=== PATIENT | female | born 1945 | race Hispanic/Latino ===

== ENCOUNTER 2017-07-22 19:23 | Emergency (ER) | payer MEDICARE ==
[~2017-07-22] VITALS: Ht 162.6 cm; Wt 65.8 kg
[~2017-07-22 19:23] MED LIST: COMPRO25 MG PO; HYDROCODON-ACE1 EA11 PO; HYDROXYZINE HCL25 MG PO; RANITIDINE HCL150 MG PO; ULTRAM 50MG50 MG PO; Z.0.LEVOTHROID75 MCG; Z.0.LOVASTATIN20 MG; Z.1.DIOVAN HCT 3201 PO; ZOFRAN4 MG PO
[2017-07-22] MEDS ORDERED: ACETAMINOPHEN 325 MG TAB PO ONE (21:45)
[2017-07-22 23:54] VITALS: BP 149/88
== END 2017-07-22 22:08 | disposition home or self-care (01) ==
LOC: FSED 19:23
DX: S80.01XA Contusion of right knee, initial encounter (principal); W01.0XXA Fall on same level from slipping, tripping and stumbling without subsequent striking against object, initial encounter; Y93.01 Activity, walking, marching and hiking; Y92.015 Private garage of single-family (private) house as the place of occurrence of the external cause; S83.91XD Sprain of unspecified site of right knee, subsequent encounter; I10 Essential (primary) hypertension; E78.5 Hyperlipidemia, unspecified; E03.9 Hypothyroidism, unspecified; N95.9 Unspecified menopausal and perimenopausal disorder
CPT/HCPCS: 99283

== ENCOUNTER → 2017-09-16 | Day surgery (SDC) | payer MEDICARE ==
[2017-09-14 12:11] LABS: BASOPHILS % 0.8 % (0.0-1.0); EOSINOPHILS # (AUTO) 0.2 (0.0-0.4); EOSINOPHILS % 4.1 % (0.0-6.0); HEMOGLOBIN 12.2 g/dL (12.0-16.0); LYMPHOCYTES # (AUTO) 1.8 (1.0-3.2); MEAN CORPUSCULAR HEMOGLOBIN 30.5 pg (28-32); MEAN CORPUSCULAR HGB CONC 33.9 g/dL (31-35); MONOCYTES # (AUTO) 0.5 (0.2-0.8); MONOCYTES % 9.7 % (4.4-11.3); NEUTROPHILS # (AUTO) 2.3 (2.1-6.9); NEUTROPHILS % 48.2 % (38.7-80.0); PLATELET COUNT 160 x10e3/uL (140-360); RED CELL DISTRIBUTION WIDTH 12.8 % (11.7-14.4)
[2017-09-14 12:27] LABS: ANION GAP 10.6 mmol/L (8-16); BLOOD UREA NITROGEN 18 mg/dL (7-26); BUN/CREATININE RATIO 22 (6-25); CALCIUM 9.3 mg/dL (8.4-10.2); CARBON DIOXIDE 30 mmol/L (22-29); CHLORIDE 101 mmol/L (98-107); CREATININE, SERUM 0.81 mg/dL (0.57-1.11); EST GLOMERULAR FILTRATION RATE > 60 ML/MIN (60-); GLUCOSE 146 mg/dL (74-118); POTASSIUM 4.6 mmol/L (3.5-5.1); SODIUM 137 mmol/L (136-145)
--- NOTE | 2017-09-14 12:28 | Diagnostic Imaging Report ---
PROCEDURE: Frontal and lateral views of the chest. COMPARISON: None. INDICATIONS: PRE-OP KNEE FINDINGS: Lines/tubes: None. Lungs: The lungs are well inflated and clear. There is no evidence of pneumonia or pulmonary edema. Pleura: There is no pleural effusion or pneumothorax. Heart and mediastinum: The heart and the mediastinum are normal. Bones: No acute bony abnormality. Rotator cuff calcific tendinosis. Upper abdomen: No free air under the diaphragm. Cholecystectomy clips. IMPRESSION: No acute cardiopulmonary disease. Dictated by: William Leon M.D. on 09/14/2017 at 12:29 Electronically approved by: William Leon M.D. on 09/14/2017 at 12:29
[~2017-09-16] MED LIST changes: +ACETAMINOPHEN 1000 MG/100 ML IV ONE; +AMLODIPINE BES2.5 MG PO; +BUPIVACAINE 0.5%/EPI 30 ML SDV INJ ONE; +CEFAZOLIN SOD 2 GM/D5W 50ML 50 ML IV ONE; +DEXAMETHASONE SOD PHOS INJ 4 MG/ML VIAL ONE; +DIOVAN HCT 3201 EACH PO; +EPHEDRINE SULFATE INJ 50 MG/10 ML SYR ONE; +FENTANYL CITRATE/PF 100MCG/2 ML INJ ONE; +LEVOCETIRIZINE PO; +LIDOCAINE HCL 2% LOCAL INJ 5 ML SDV VIAL INJ ONE; +MELOXICAM15 MG PO; +MIDAZOLAM HCL 2 MG/2 ML VIAL ONE; +ONDANSETRON HCL INJ 2 MG/ML VIAL ONE; +PHENYLEPHRINE HCL 1% 10 MG/ML VIAL ONE; +PROPOFOL IV EMULSION 10 MG/ML 20 ML VIAL ONE; +SEVOFLURANE INHAL SOLN 250 ML PEN BTL ONE; -Z.0.LEVOTHROID75 MCG; +Z.0.LEVOTHROID75 MCG PO; -Z.0.LOVASTATIN20 MG; +Z.0.LOVASTATIN20 MG PO
--- OUTSIDE RECORDS SUMMARY | 2017-09-16 09:57 | XMS REPORT ---
Author Author [facility] Address Unknown Phone Unavailable Care Team Providers Care Disabilities Caregiver Name Role Phone MATTHEW DICKSON Unavailable Unavailable Problems This patient has no known problems. Allergies, Adverse Reactions, Alerts This patient has no known allergies or adverse reactions. Medications This patient has no known medications. Results Test Description Test Time Test Comments Text Results Atomic Results Result Comments CHEST [address] [address] Patient Name: PAMELA MARI MR #: [id number] : 1945 Age/Sex: 71/F Req #: [id number] Adm Physician: Ordered by: MATTHEW DICKSON MD Report #: [id number] Location: OR Room/Bed: Procedure: [id number] DX/CHEST 2 VIEWS Exam Date: 09/14/17 Exam Time: 1220 REPORT STATUS: Signed PROCEDURE: Frontal and lateral views of the chest. COMPARISON: None. INDICATIONS: PRE-OP KNEE FINDINGS: Lines/tubes: None. Lungs: The lungs are well inflated and clear. There is no evidence of pneumonia or pulmonary edema. Pleura: There is no pleural effusion or pneumothorax. Heart and mediastinum: The heart and the mediastinum are normal. Bones: No acute bony abnormality. Rotator cuff calcific tendinosis. Upper abdomen: No free air under the diaphragm. Cholecystectomy clips. IMPRESSION: No acute cardiopulmonary disease. Dictated by: William Leon M.D. on 09/14/2017 at 12:29 Electronically approved by: William Leon M.D. on 09/14/2017 at 12:29 Dictated By: WILLIAM LEON MD 1229 Transcribed By: SARAH on 09/14/17 1229 COPY TO: MATTHEW DICKSON MD
--- OUTSIDE RECORDS SUMMARY | 2017-09-16 09:57 | XMS REPORT | Continuity of Care Document ---
Author Author [facility] Organization [facility] Address [address] [place] [address] Phone Unavailable Care Team Providers Care Special Police Officer Name Role Phone CHRISTOPHER TIAN PCP Insurance Providers Guarantor Pamela Pan Y Address [address] [place] [address] Email [facility] [employer] Policy Number [id number] Subscriber's Name Pamela Pan Y Relationship 18 Self / Same As Patient Group Number [id number] Group Name RETIRED Effective Date 11 Advance Directives Directive Response Recorded Date/Time Does the patient have an advance directive? No 12/23/12 12:15pm If yes, is advance directive on file with [facility]? No 12/23/12 12:15pm If not on file with [facility] will patient provide a copy? No 12/23/12 12:15pm Do you have a Directive to Physician? No 07/22/17 7:36pm Do you have a Medical Power of Railroad Whe[employer] Ax[employer] Inspector? No 07/22/17 7:36pm Do you have an out of hospital Do Not Resuscitate Order? No 07/22/17 7:36pm Do you have any special needs we should be aware of? No 07/22/17 7:36pm Do you have a support person here with you today? No 07/22/17 7:36pm Did patient receive Notice of Privacy Practices? Yes 07/22/17 7:36pm Did patient receive patient rights and responsibilities? Yes 07/22/17 7:36pm Problems No problem information available. Medications Current Home Medications Medication Dose Units Route Directions Days Qty Instructions Start Date Levothyroxine Sodium (Levothroid) 75 Mcg Tablet Lovastatin 20 Mg Tablet Daily Ondansetron Hcl (Zofran*) 4 Mg Tablet 4 Mg Oral Every 8 Hours as needed for Nausea And Vomiting Ranitidine Hcl 150 Mg Tablet 150 Mg Oral Twice A Day Tramadol Hcl (Ultram 50MG*) 50 Mg Tab 50 Mg Oral As Needed Valsartan/Hydrochlorothiazide (Diovan Hct 320-12.5 Mg Tab) 1 Each Tablet Oral Daily Past Home Medications Medication Directions Ordered Status Hydrocodone Bit/Acetaminophen (Hydrocodon-Acetaminophen 5-325) 1 Each Tablet, Oral Three Times A Day as needed Discontinued Hydroxyzine Hcl 25 Mg Tablet, 25 Mg Oral As Needed Discontinued Prochlorperazine (Compro) 25 Mg Supp, 10 Mg Oral Three Times A Day as needed Discontinued Social History Social History Problem Response Recorded Date/Time Onset Date Status Hx Psychiatric Problems No 12/23/2012 12:15pm Not Applicable Not Applicable Hx Eating Disorder No 12/23/2012 12:15pm Not Applicable Not Applicable Hx Substance Use Disorder No 12/23/2012 12:15pm Not Applicable Not Applicable Hx Depression No 12/23/2012 12:15pm Not Applicable Not Applicable Hx Alcohol Use No 12/23/2012 12:15pm Not Applicable Not Applicable Hx Substance Use Treatment No 12/23/2012 12:15pm Not Applicable Not Applicable Hx Physical Abuse No 12/23/2012 12:15pm Not Applicable Not Applicable Smoking Status Start Date Stop Date Former smoker Hospital Discharge Instructions No hospital discharge instruction information available. Plan of Care Discharge Date 07/22/17 10:08pm Disposition HOME, SELF-CARE Condition at Discharge Stable Instructions/Education Provided Strains Contusion Sprains - Knee Prescriptions See Medication Section Referrals CHRISTOPHER TIAN Address: [address] [place] [id number] Additional Instructions/Education Return to the closest emergency room if symptoms worsen. You may take a maximum of 500mg Tylenol every 4 hours as needed for pain and fever. It is okay to alternate your meloxicam and Tylenol. Rest your knee. Use cane and walker as needed. Ice your knee for 20 minutes every 2 hours for the next 48 hrs. Wrap your knee with an FRANCISCA wrap. Elevate your knee above your heart. Follow up with your primary care physician tomorrow. Functional Status No functional status information available. Allergies, Adverse Reactions, Alerts Allergen Type Severity Reaction Status Last Updated Aspirin Allergy Unknown Active 07/22/17 Immunizations No immunization information available. Vital Signs Acute Vital Signs Vital Response Date/Time Temperature (Fahrenheit) 98.2 degrees F (97.6 - 99.5) 07/22/2017 11:54pm Pulse Pulse Rate (adult) 72 bpm (60 - 90) 07/22/2017 11:54pm Respiratory Rate 16 bpm (12 - 24) 07/22/2017 11:54pm Blood Pressure 149/88 mm Hg 07/22/2017 11:54pm Height 5 ft 4 in 07/22/2017 7:50pm Weight 145 lb 07/22/2017 7:50pm Body Mass Index 24.9 kg/m^2 07/22/2017 7:50pm Results No relevant diagnostic test, laboratory data and/or discharge summary information available. Procedures No procedure information available. Encounters Encounter Location Arrival/Admit Date Discharge/Depart Date Attending Provider Departed Emergency Room [facility] 07/22/17 7:23pm 10:08pm JOSEY WALLACE MD
--- NOTE | 2017-09-16 23:19 | Operative Report ---
DATE OF PROCEDURE: September 16, 2017 PREOPERATIVE DIAGNOSES 1. Right knee medial meniscus tear. 2. Right knee degenerative joint disease of the knee. POSTOPERATIVE DIAGNOSES 1. Right knee medial meniscus tear. 2. Right knee degenerative joint disease of the knee. OPERATIONS/PROCEDURES PERFORMED: Patient underwent 1. Right knee examination under anesthesia. 2. Right knee arthroscopy. 3. Right knee partial medial meniscectomy. 4. Right knee chondroplasty of the patella, trochlea, and the medial femoral condyle, medial plateau and lateral femoral condyle, lateral tibial plateau. ASSIST: None. ANESTHESIA: General endotracheal intubation anesthesia. IV FLUIDS: Per the anesthesia record. BRIEF DESCRIPTION OF OPERATIVE PROCEDURE: Ms. Pan was taken to the operating room, placed in supine position on operating table. Following induction of general anesthesia, as well as endotracheal intubation, the patient's right lower extremity examined under anesthesia. She was found to have a mild effusion within the joint, but, otherwise, ligamentously stable knee. The patient's lower extremity was prepped and draped in standard surgical fashion. A 2-port technique used to provide this patient arthroscopic evaluation of the knee joint. Examination of the suprapatellar pouch, medial lateral gutters found no evidence of loose bodies. There was, however, evidence of chondromalacia of the patella, trochlear surface. The scope was advanced in medial compartment. Patient's medial compartment demonstrated a torn medial meniscus tear. There was also chondromalacia of articulating surfaces. A combination of biting forceps and a motorized shaver was used to resect the torn portion of meniscus. Chondroplasties of the medial femoral condyle and medial plateau were performed at this time. Scope was advanced into notch. The anterior cruciate ligament identified and found to be intact. Scope was advanced in lateral compartment and the patient was found to have chondromalacia of the lateral tibial plateau. A chondroplasty of the surface was performed. The scope was then placed in the suprapatellar pouch and chondroplasty of the patella and trochlea performed. The knee was inflated with sterile normal saline. Each of portal sites were closed using 4-0 nylon suture. Portal sites as well as knee itself were injected with 0.5% Marcaine with epinephrine. Sterile dressings were applied and the patient was awakened, taken to postanesthesia care unit in stable condition. Job#: [id number]
== END | disposition home or self-care (01) ==
LOC: OR 09:55
PROVIDERS: ATTEND Specialist
DX: S83.221A Peripheral tear of medial meniscus, current injury, right knee, initial encounter (principal); M22.41 Chondromalacia patellae, right knee; M17.11 Unilateral primary osteoarthritis, right knee; E03.9 Hypothyroidism, unspecified; E11.9 Type 2 diabetes mellitus without complications; I10 Essential (primary) hypertension; R06.83 Snoring; K21.9 Gastro-esophageal reflux disease without esophagitis; N39.0 Urinary tract infection, site not specified; E78.5 Hyperlipidemia, unspecified; R01.1 Cardiac murmur, unspecified; X58.XXXA Exposure to other specified factors, initial encounter; Z01.810 Encounter for preprocedural cardiovascular examination; Z01.812 Encounter for preprocedural laboratory examination; Z01.818 Encounter for other preprocedural examination; Z82.61 Family history of arthritis
CPT/HCPCS: 29881; 36415; 71046; 80048; 85025; 93005; J1100; J2001; J2250; J2370; J2405

== ENCOUNTER 2019-02-05 13:23 | Emergency (ER) | payer MEDICARE ==
[~2019-02-05] VITALS: Ht 162.6 cm; Wt 65.8 kg
[~2019-02-05 13:23] MED LIST changes: -ACETAMINOPHEN 1000 MG/100 ML IV ONE; -BUPIVACAINE 0.5%/EPI 30 ML SDV INJ ONE; -CEFAZOLIN SOD 2 GM/D5W 50ML 50 ML IV ONE; -DEXAMETHASONE SOD PHOS INJ 4 MG/ML VIAL ONE; -EPHEDRINE SULFATE INJ 50 MG/10 ML SYR ONE; -FENTANYL CITRATE/PF 100MCG/2 ML INJ ONE; -LIDOCAINE HCL 2% LOCAL INJ 5 ML SDV VIAL INJ ONE; -MIDAZOLAM HCL 2 MG/2 ML VIAL ONE; -ONDANSETRON HCL INJ 2 MG/ML VIAL ONE; -PHENYLEPHRINE HCL 1% 10 MG/ML VIAL ONE; -PROPOFOL IV EMULSION 10 MG/ML 20 ML VIAL ONE; -SEVOFLURANE INHAL SOLN 250 ML PEN BTL ONE
[2019-02-05] MEDS ORDERED: HYDROCODONE/APAP 7.5MG-325MG 1 EA TAB PO ONE (13:45)
--- NOTE | 2019-02-05 14:04 | NUR ---
PATIENT TO ROOM 5
--- NOTE | 2019-02-05 15:45 | Diagnostic Imaging Report ---
Exam: Left shoulder radiographs-2 views History: Pain. Comparison: None. Findings/Impression: No evidence of acute fracture or malalignment. There is amorphous calcification at the greater tuberosity, suggestive of calcific tendinopathy. There are moderate degenerative changes at the left acromioclavicular and glenohumeral joints. Signed by: Dr. Tamika Bates MD on 02/05/2019 3:41 PM
== END 2019-02-05 16:11 | disposition home or self-care (01) ==
LOC: ER 13:23
DX: M25.512 Pain in left shoulder (principal); M75.52 Bursitis of left shoulder; I10 Essential (primary) hypertension; E78.5 Hyperlipidemia, unspecified; E03.9 Hypothyroidism, unspecified; F32.9 Major depressive disorder, single episode, unspecified
CPT/HCPCS: 99284

== ENCOUNTER 2019-10-22 16:43 | Emergency (ER) | payer MEDICARE ==
[~2019-10-22] VITALS: Ht 162.6 cm; Wt 65.8 kg
--- OUTSIDE RECORDS SUMMARY | 2019-10-22 16:46 | XMS REPORT ---
Author Author [facility] Organization [facility] t Address [address] [place] [address] Phone Unavailable Care Team Providers Care Pet Store Merchandiser Name Role Phone CHRISTOPHER TIAN PCP Mellissa WHITTINGTON Attphys Unavailable MATTHEW DICKSON Attwicho Unavailable Payers Payer Name Policy Type Policy Number Effective Date Expiration Date [facility] [id number] 2011 00:00:00 [facility] [id number] 2011 00:00:00 [facility] Problems This patient has no known problems. Allergies, Adverse Reactions, Alerts Allergy Name Allergy Type Status Severity Reaction(s) Onset Date Inacti ve Date Treating Clinician Comments Source Aspirin Allergy to Substance Active Unknown 2017-07-22 00:00:00 [facility] Medications Ordered Medication Name Filled Medication Name Start Date Stop Da te Current Medication? Ordering Clinician Indication Dosage Frequency Signature (SIG) Comments Components Source Amlodipine Besylate 2.5 Mg Tablet Amlodipine Besylate 2.5 Mg Tablet Yes 2.5 Daily [facility] Levocetirizine Levocetirizine Yes Daily [facility] Levothyroxine Sodium (Levothroid) 75 Mcg Tablet Levoth yroxine Sodium (Levothroid) 75 Mcg Tablet Yes 75 Daily [facility] Lovastatin 20 Mg Tablet Lovastatin 20 Mg Tablet Yes 20 Bedtime [facility] Meloxicam 15 Mg Tablet Meloxicam 15 Mg Tablet Yes 15 Daily [facility] Valsartan/Hydrochlorothiazide (Diovan Hct 320-25 Mg Ta blet) 1 Each Tablet Valsartan/Hydrochlorothiazide (Diovan Hct 320-25 Mg Tablet) 1 Each Tablet Yes Daily [facility] Ondansetron Hcl (Zofran*) 4 Mg Tablet, 4 Mg Oral Ondan setron Hcl (Zofran*) 4 Mg Tablet, 4 Mg Oral 2017-09-14 00:00:00 No 4 Every 8 Hours as needed for Nausea And Vomiting [facility] Ranitidine Hcl 150 Mg Tablet, 150 Mg Oral Ranitidine H cl 150 Mg Tablet, 150 Mg Oral 2017-09-14 00:00:00 No 150 Twice A Day [facility] Tramadol Hcl (Ultram 50MG*) 50 Mg Tab, 50 Mg Oral Tram adol Hcl (Ultram 50MG*) 50 Mg Tab, 50 Mg Oral 2017-09-14 00:00:00 No 50 As Ne eded [facility] Valsartan/Hydrochlorothiazide (Diovan Hc t 320-12.5 Mg Tab) 1 Each Tablet, Oral Valsartan/Hydrochlorothiazide (Diovan Hc t 320-12.5 Mg Tab) 1 Each Tablet, Oral 2017-09-14 00:00:00 No Daily [facility] Hydroxyzine Hcl 25 Mg Tablet, 25 Mg Oral Hydroxyzine H cl 25 Mg Tablet, 25 Mg Oral 2014-08-01 00:00:00 No 25 As Needed [facility] Hydrocodone Bit/Acetaminophen (Hydrocodo n-Acetaminophen 5-325) 1 Each Tablet, Oral Hydrocodone Bit/Acetaminophen (Hydrocodo n-Acetaminophen 5-325) 1 Each Tablet, Oral 2014-06-28 00:00:00 No Three Alfredo es A Day as needed [facility] Prochlorperazine (Compro) 25 Mg Supp, 10 Mg Oral Proch lorperazine (Compro) 25 Mg Supp, 10 Mg Oral 2014-06-28 00:00:00 No 10 Three Times A Day as needed [facility] Procedures This patient has no known procedures. Encounters Start Date/Time End Date/Time Encounter Type Admission Type [facility] Care Department Encounter ID Source 2019-02-05 13:23:00 2019-02-05 16:11:00 Departed Emergency Room 1 DYLAN WHITTINGTON [facility] [id number] [facility] 2017-07-22 19:23:00 2017-07-22 22:08:00 Departed Emergency Room [facility] [id number] [facility] Results Test Description Test Time Test Comments Results Result Comments Source SHOULDER LEFT COMPLETE 2019-02-05 15:40:00 [place] [address] Patient Name: PAMELA MARI MR #: [id number] : 1945 Age/Sex: 73/F Req #: [id number] Adm Physician: Ordered by: DYLAN WHITTINGTON MD Report #: [id number] Location: ER Room/Bed: Procedure: [id number] DX/SHOULDER LEFT COMPLETE Exam Date: 02/05/19 Exam Time: 1345 REPORT STATUS: Signed Exam: Left shoulder radiographs-2 views History: Pain. Comparison: None. Findings/Impression: No evidence of acute fracture or malalignment. There is amorphous calcification at the greater tuberosity, suggestive of calcific tendinopathy. There are moderate degenerative changes at the left acromioclavicular and glenohumeral joints. Signed by: Dr. Clarissa Ugarte MD on 02/05/2019 3:41 PM Dictated By: CLARISSA UGARTE MD 40 Transcribed By: OBDULIA on 02/05/191540 COPY TO: DYLAN WHITTINGTNO MD CHEST 2 VIEWS [place] [address] Patient Name: PAMELA MARI MR #: [id number] : 1945 Age/Sex: 71/F Req #: [id number] Adm Physician: Ordered by: MATTHEW DICKSON MD Report #: [id number] Location: OR Room/Bed: Procedure: [id number] DX/CHEST 2 VIEWS Exam Date: 09/14/17 Exam [...] No acute cardiopulmonary disease. Dictated by: William Sheehan M.D. on 09/14/2017 at 12:29 Electronically approved by: William Sheehan M.D. on 09/14/2017 at 12:29 Dictated By: WILLIAM SHEEHAN MD 1229 Transcribed By: SARAH on 09/14/17 1229 COPY TO: MATTHEW DICKSON MD
[2019-10-22] MEDS ORDERED: PREDNISONE 20 MG TAB PO STA (17:23)
[2019-10-22] MEDS ORDERED: HYDROXYZINE HCL 25 MG TAB PO STA (17:23)
[2019-10-22] MEDS ORDERED: FAMOTIDINE 20 MG TAB PO STA (17:24)
--- NOTE | 2019-10-22 17:30 | Emergency Department Note ---
History of Present Illnes History of Present Illness Chief Complaint: Skin Rash or Abscess History of Present Illness This is a 74 year old female with long standing h/o of rash presents with acute onset of itchiness of the back since thursday . Onset (how long ago): day(s) (4) Radiation: back Severity: mild Onset quality: sudden Duration (how long): day(s) (4) Timing of current episode: constant Progression: unchanged Chronicity: new Relieving factors: none Exacerbating factors: none Associated symptoms: denies other symptoms Treatments prior to arrival: other (certizine) Past Medical/Family History Physician Review I have reviewed the patient's past medical and family history. Any updates have been documented here. Past Medical History Recent Fever: No Clinical Suspicion of Infectio: No New/Unexplained Change in Ment: No Past Medical History: Hypertension, Hypothyroidism, Depression, Hyperlipedemia Other Medical History: HIGH CHOLESTEROL Other Surgery: LEFT KNEE Social History Smoking Cessation: Never Smoker Alcohol Use: None Any Illegal Drug Use: No Other Last Tetanus: UNK Review of Systems Review of Systems Constitutional: no symptoms EENTM: no symptoms Cardiovascular: no symptoms Respiratory: no symptoms Gastrointestinal: no symptoms Genitourinary: no symptoms Musculoskeletal: no symptoms Neurological: no symptoms Psychological: no symptoms Endocrine: no symptoms Hematological/Lymphatic: no symptoms Review of other systems All other systems reviewed and negative. Physical Exam Related Data Allergies: Coded Allergies: aspirin (Verified Allergy, Unknown, 07/22/17) Physical Exam CONSTITUTIONAL Constitutional: well-developed, well-nourished HENT HENT: normocephalic, atraumatic, oropharynx clear/moist, nose normal HENT L/R: left ext ear normal, right ext ear normal EYES Eyes: PERRL, conjunctivae normal NECK Neck: ROM normal PULMONARY Pulmonary: effort normal, breath sounds normal CARDIOVASCULAR Cardiovascular: regular rhythm, heart sounds normal, capillary refill normal, normal rate GASTROINTESTINAL Abdominal: soft, nontender, bowel sounds normal GENITOURINARY Genitourinary: exam deferred SKIN Skin: warm, dry, rash (back , ), other MUSCULOSKELETAL Musculoskeletal: ROM normal NEUROLOGICAL Neurological: alert, oriented x 3, no gross motor or sensory deficits PSYCHOLOGICAL Psychological: mood/affect normal, judgement normal Critical Care Time Subsequent provider I assumed direction of critical care for this patient from another provider of my specialty. Assessment & Plan Home Meds Reported Medications Valsartan/Hydrochlorothiazide (DIOVAN HCT 320-25 MG TABLET) 1 Each Tablet, PO DAILY 09/14/17 Meloxicam (MELOXICAM) 15 Mg Tablet, 15 MG PO DAILY 09/14/17 [Levocetirizine] No Conflict Check, PO DAILY 09/14/17 Amlodipine Besylate (AMLODIPINE BESYLATE) 2.5 Mg Tablet, 2.5 MG PO DAILY 09/14/17 Levothyroxine Sodium (Levothroid) 75 Mcg Tablet, 75 MCG PO DAILY 02/14/12 Lovastatin (Lovastatin) 20 Mg Tablet, 20 MG PO HS 02/14/12 JESSICA ACOSTA DO October 22, 2019 17:30
[2019-10-22] MEDS ORDERED: HYDROXYZINE HCL 25 MG TAB ONE (17:52)
[2019-10-22] MEDS ORDERED: FAMOTIDINE 20 MG TAB ONE (17:52)
[2019-10-22] MEDS ORDERED: PREDNISONE 20 MG TAB ONE ×2 (17:52→18:03)
--- NOTE | 2019-10-22 19:00 | NUR ---
TRIAGE COMPLETED AT 1700 NOT 1800
== END 2019-10-22 19:07 | disposition home or self-care (01) ==
LOC: FSED 16:43
DX: R21 Rash and other nonspecific skin eruption (principal); I10 Essential (primary) hypertension; E78.5 Hyperlipidemia, unspecified; E78.00 Pure hypercholesterolemia, unspecified
CPT/HCPCS: 99282; J3410; J7512

== ENCOUNTER 2020-08-12 19:50 | Emergency (ER) | payer MEDICARE ==
[~2020-08-12] VITALS: Ht 162.6 cm; Wt 68.0 kg
[2020-08-12] MEDS ORDERED: FAMOTIDINE 20 MG/2 ML VIAL IV STA (20:13)
[2020-08-12] MEDS ORDERED: SODIUM CHLORIDE 0.9% 1000ML 1,000 ML IV STA (20:13)
[2020-08-12] MEDS ORDERED: ONDANSETRON HCL INJ 2MG/ML 2ML 2 MG/ML VIAL IV STA (20:13)
[2020-08-12] MEDS ORDERED: SODIUM CHLORIDE 0.9% 1000ML 1,000 ML ONE (20:41)
[2020-08-12] MEDS ORDERED: ONDANSETRON HCL INJ 2MG/ML 2ML 2 MG/ML VIAL ONE (20:41)
[2020-08-12] MEDS ORDERED: FAMOTIDINE 20 MG/2 ML VIAL IV ONE (20:42)
== END 2020-08-12 21:52 | disposition home or self-care (01) ==
LOC: FSED 20:12
DX: R10.13 Epigastric pain (principal); R11.2 Nausea with vomiting, unspecified; I10 Essential (primary) hypertension; E78.5 Hyperlipidemia, unspecified; E03.9 Hypothyroidism, unspecified; F32.9 Major depressive disorder, single episode, unspecified; E78.00 Pure hypercholesterolemia, unspecified
CPT/HCPCS: 71046; 93005; 99284; J2405; J7030

== ENCOUNTER → 2024-05-09 | Day surgery (SDC) | payer MEDICARE ==
[~2024-05-09] MED LIST changes: +ACETAMINOPHEN 1000 MG/100 ML 100 ML IV ONE; +ACETAMINOPHEN 1000 MG/100 ML IV PRN; +BUPIVACAINE/EPI 0.5% 30ML SDV-MPF INJ ONE; +CELECOXIB 100 MG CAP PO SCH; +DEXAMETHASONE SOD PHOS INJ 4 MG/ML SDV ONE; +DIPHENHYDRAMINE HCL INJ 50 MG/ML VIAL IV PRN; +DOCUSATE SODIUM 100 MG CAP PO PRN; +ENOXAPARIN SOD INJ 40 MG/0.4 ML SYR SC SCH; +EPHEDRINE SULFATE INJ 50 MG/ML VIAL ONE; +FAMOTIDINE 20 MG/2 ML VIAL IV ONE; +FENTANYL CITRATE/PF 100MCG/2 ML INJ ONE; +HYDROCODONE/APAP 5MG-325MG TAB PO PRN; +HYDROCODONE/APAP 7.5MG-325MG 1 EA TAB PO PRN; +LIDOCAINE HCL 2% LOCAL INJ 5 ML SDV VIAL INJ ONE; +ONDANSETRON HCL 4 MG ORAL DISINTEGRATING TAB ONE; +ONDANSETRON HCL INJ 2MG/ML 2ML 2 MG/ML VIAL IV PRN; +ONDANSETRON HCL INJ 2MG/ML 2ML 2 MG/ML VIAL ONE; +PROPOFOL IV EMULSION 10 MG/ML 20 ML VIAL ONE; +SEVOFLURANE INHAL SOLN 250 ML PEN BTL ONE; +SODIUM CHLORIDE 0.9% 1000ML 1,000 ML IV SCH; +TRADJENTA5 MG; +XARELTO10 MG PO
[2024-05-09] MEDS: GABAPENTIN 300 MG CAP ONE (06:20)
[2024-05-09] MEDS: DEXAMETHASONE SOD PHOS 10 MG/1 ML VIAL ONE (06:20)
[2024-05-09] MEDS: CEFAZOLIN SODIUM 2 GM ONE (06:20)
[2024-05-09] MEDS: LACTATED RINGER'S 1,000 ML ONE (06:20)
[2024-05-09] MEDS: CELECOXIB 200 MG CAP ONE (06:20)
[2024-05-09 06:48] LABS: BASOPHILS % 0.7 % (0.0-1.0); EOSINOPHILS # (AUTO) 0.2 (0.0-0.4); EOSINOPHILS % 2.7 % (0.0-6.0); HEMATOCRIT 33.9 % (34.2-44.1); LYMPHOCYTES # (AUTO) 1.9 (1.0-3.2); LYMPHOCYTES % 32.4 % (18.0-39.1); MEAN CORPUSCULAR HEMOGLOBIN 31.3 pg (28-32); MEAN CORPUSCULAR HGB CONC 32.4 g/dL (31-35); MEAN CORPUSCULAR VOLUME 96.3 fL (81-99); MONOCYTES # (AUTO) 0.5 (0.2-0.8); NEUTROPHILS # (AUTO) 3.3 (2.1-6.9); PLATELET COUNT 171 x10e3/uL (140-360); RED BLOOD COUNT 3.52 x10e6/uL (3.6-5.1); RED CELL DISTRIBUTION WIDTH 12.4 % (11.7-14.4)
[2024-05-09 07:04] LABS: ANION GAP 13.3 mmol/L (8-16); CALCIUM 9.2 mg/dL (8.4-10.2); CREATININE, SERUM 0.8 mg/dL (0.57-1.11)
[2024-05-09 07:07] LABS: POTASSIUM 3.3 mmol/L (3.5-5.1)
[2024-05-09] MEDS: FENTANYL CITRATE/PF 100MCG/2 ML INJ ONE (09:09)
[2024-05-09] MEDS: HYDROCODONE/APAP 7.5MG-325MG 1 EA TAB PO ONE (09:45)
[2024-05-09 10:45] VITALS: BP 137/57; PULSE 80; RESP 18; O2SAT 98
[2024-05-09] MEDS: ONDANSETRON HCL 4 MG ORAL DISINTEGRATING TAB SL ONE (11:15)
== END | disposition home health service (06) ==
LOC: OR 05:37
PROVIDERS: ATTEND Specialist
DX: M17.12 Unilateral primary osteoarthritis, left knee (principal); M06.9 Rheumatoid arthritis, unspecified; E11.9 Type 2 diabetes mellitus without complications; I10 Essential (primary) hypertension; E03.9 Hypothyroidism, unspecified; H54.62 Unqualified visual loss, left eye, normal vision right eye; E78.5 Hyperlipidemia, unspecified; R01.1 Cardiac murmur, unspecified; Z88.6 Allergy status to analgesic agent; Z01.810 Encounter for preprocedural cardiovascular examination; Z01.812 Encounter for preprocedural laboratory examination; Z01.818 Encounter for other preprocedural examination; Z79.1 Long term (current) use of non-steroidal anti-inflammatories (NSAID); Z79.02 Long term (current) use of antithrombotics/antiplatelets; Z79.84 Long term (current) use of oral hypoglycemic drugs
CPT/HCPCS: 36415; 71046; 80048; 85025; 86850; 86900; 93005; C1713; C1776; J0171; J0690; J1100; J2003; J2405; J2795; Q0162

== ENCOUNTER → 2024-07-29 | Outpatient (RCR) | payer MEDICARE ==
[~2024-07-29] MED LIST changes: -ACETAMINOPHEN 1000 MG/100 ML 100 ML IV ONE; -ACETAMINOPHEN 1000 MG/100 ML IV PRN; -BUPIVACAINE/EPI 0.5% 30ML SDV-MPF INJ ONE; -CELECOXIB 100 MG CAP PO SCH; -DEXAMETHASONE SOD PHOS INJ 4 MG/ML SDV ONE; -DIPHENHYDRAMINE HCL INJ 50 MG/ML VIAL IV PRN; -DOCUSATE SODIUM 100 MG CAP PO PRN; -ENOXAPARIN SOD INJ 40 MG/0.4 ML SYR SC SCH; -EPHEDRINE SULFATE INJ 50 MG/ML VIAL ONE; -FAMOTIDINE 20 MG/2 ML VIAL IV ONE; -FENTANYL CITRATE/PF 100MCG/2 ML INJ ONE; -HYDROCODONE/APAP 5MG-325MG TAB PO PRN; -HYDROCODONE/APAP 7.5MG-325MG 1 EA TAB PO PRN; -LIDOCAINE HCL 2% LOCAL INJ 5 ML SDV VIAL INJ ONE; -ONDANSETRON HCL 4 MG ORAL DISINTEGRATING TAB ONE; -ONDANSETRON HCL INJ 2MG/ML 2ML 2 MG/ML VIAL IV PRN; -ONDANSETRON HCL INJ 2MG/ML 2ML 2 MG/ML VIAL ONE; -PROPOFOL IV EMULSION 10 MG/ML 20 ML VIAL ONE; -SEVOFLURANE INHAL SOLN 250 ML PEN BTL ONE; -SODIUM CHLORIDE 0.9% 1000ML 1,000 ML IV SCH
== END ==
LOC: PT 07-14 10:35
PROVIDERS: ATTEND Physician Assistant
DX: Z47.1 Aftercare following joint replacement surgery (principal); Z96.652 Presence of left artificial knee joint; M25.562 Pain in left knee; M25.662 Stiffness of left knee, not elsewhere classified

== ENCOUNTER 2024-08-26 14:00 | Outpatient (RCR) | payer MEDICARE | END 2024-08-29 | LOC: PT 14:00 | PROVIDERS: ATTEND Physician Assistant | DX: Z47.1 Aftercare following joint replacement surgery (principal); Z96.652 Presence of left artificial knee joint; M25.562 Pain in left knee; M25.662 Stiffness of left knee, not elsewhere classified; M62.81 Muscle weakness (generalized) ==

== ENCOUNTER 2024-09-15 15:00 | Outpatient (RCR) | payer MEDICARE | END 2024-09-28 | LOC: PT 15:00 | PROVIDERS: ATTEND Physician Assistant | DX: Z47.1 Aftercare following joint replacement surgery (principal); Z96.652 Presence of left artificial knee joint; M25.562 Pain in left knee; M25.662 Stiffness of left knee, not elsewhere classified; M62.81 Muscle weakness (generalized) ==